=== PATIENT | male | born 1945 | race Caucasian/White ===

== ENCOUNTER 2019-09-28 11:12 | Day surgery (SDC) | payer OTHER ==
[2019-09-28] VITALS (10 sets, daily range): BP systolic 105–149; BP diastolic 53–82; PULSE 68–96; TEMP 98–98.7
[~2019-09-28] VITALS: Ht 177.8 cm; Wt 72.9 kg
[2019-09-28] MEDS ORDERED: 00186-0370-20 IH (12:11)
[2019-09-28 12:48] LABS: BASO % 0.5 % (0.0-2.0); EOS # 0.1 (0.0-0.7); EOS % 1.7 % (0-4.0); GRAN # 4.4 (1.4-6.5); GRAN % 67.6 % (42.2-75.2); HEMATOCRIT 44.6 % (42.0-52.0); HEMOGLOBIN 14.8 g/dl (13.5-18.0); LYMPH # 1.5 (1.2-3.4); LYMPH % 23.1 % (20.0-51.0); MEAN CELL VOLUME 96 fl (80.0-100.0); MEAN CORPUSCULAR HEMOGLOBIN 32 pg (27.0-31.0); MEAN CORPUSCULAR HGB CONC 33 g/dl (33.0-37.0); MEAN PLATELET VOLUME 9.9 fl (7.4-10.4); MONO # 0.4 (0.1-0.6); MONO % 6.8 % (1.7-9.3); PLATELET COUNT 261 K/mm3 (130-400); RED BLOOD COUNT 4.66 M/mm3 (4.20-5.60); REDCELL DISTRIBUTION WIDTH-CV 12.1 % (11.5-14.5)
[2019-09-28 12:56] LABS: ALBUMIN 3.8 gm/dL (3.5-5.0); BILIRUBIN,TOTAL 0.4 mg/dL (0.0-1.0); CALCIUM 8.4 mg/dL (8.4-10.2); CREATININE, serum 0.68 (0.66-1.25); POTASSIUM 3.9 mmol/L (3.4-5.0); TOTAL PROTEIN 6.8 gm/dL (6.4-8.2)
--- NOTE | 2019-09-28 13:17 | NUR ---
Initial visit; Patient and his son thanked Community Leader for offering encouragement and prayer prior to his surgical procedure.
--- NOTE | 2019-09-28 18:39 | NUR ---
PT TO ROOM 322 PER BED WITH [facility]I MEDEIROS PACU @1800. PT IS A/O X3, BOWEL SOUNDS HYPO. 5 ROBOT SITES CLOSED WITH [place] SET. VSS, PT DENIES NEEDS AT THIS TIME.
--- NOTE | 2019-09-28 20:00 | NUR ---
Refused ice to site at this time
--- NOTE | 2019-09-28 20:35 | NUR ---
Resting in bed. Assessment complete. Lungs clear. Heart sounds normal. Bowels active x4. Pulses strong throughout. No edema noted. SCD in place. INT left forearm without complications. Patient tolerating PO well. X4 lap sites CDI open to air. Denies pain. Urine yellow and cloudy at this time. Denies needs. Will monitor.
[2019-09-29 03:35] VITALS: BP 105/50; PULSE 64; TEMP 98
--- NOTE | 2019-09-29 03:41 | NUR ---
Reports 5/10 RUQ ABD pain. Provided patient with PRN tylenol at this time. Educated patient to report unrelieved pain to allow for other pain interventions. Voices understanding. Denies other needs at this time. Call light in reach.
--- NOTE | 2019-09-29 04:01 | NUR ---
Patient reports right shoulder pain. Educated patient regarding gas pains. Ambulating through surgical and medical units then returned to bed. Denies other needs at this time. Call light in reach.
--- NOTE | 2019-09-29 06:33 | NUR ---
Patient had RUQ pain and right shoulder pain during night. Educated at ambulate and provided tylenol. Otherwise uneventful night. Denies needs this AM. Call light in reach.
[2019-09-29 07:17] VITALS: BP 125/63; PULSE 81; TEMP 98
--- NOTE | 2019-09-29 07:22 | NUR ---
Report given to MALA Heard
--- NOTE | 2019-09-29 07:57 | NUR ---
Sitting up on edge of bed. Having the gas pains in chest that is becoming alleviated with getting up and moving around. Encouraged patient to continue to ambulate to help alleviate this pain. Patient denies passing gas at this time. Abd lap sites x4 with andersen set, all edges well approximated, no redness/swelling/drainage from sites. Patient hopes to go home today. Denies further needs at this time.
--- NOTE | 2019-09-29 09:53 | NUR ---
Patient dressed and ready for discharge. INT removed with catheter intact. Applied 2x2s to site and reinforced with Coban. Reviewed all discharge instructions. Questions answered. Patient signs discharge paperwork. Provided discharge information packet to the patient. Patient's son here to take patient home. Patient walked out to [facility] by RACHEL Briscoe.
--- NOTE | 2019-09-29 10:06 | NUR ---
Follow-up visit; Patient preparing to be discharged, thanked Precipitate Washer for looking in on him again today and wishing him well and God's blessings.
== END 2019-09-29 09:55 | disposition home or self-care (01) ==
LOC: SDCO 11:12 → SURG 11:12 → SDCO 13:30 → SURG 18:00 → SDCO 09-29 09:55
PROVIDERS: Surgery
DX: K40.31 Unilateral inguinal hernia, with obstruction, without gangrene, recurrent (principal); J45.909 Unspecified asthma, uncomplicated; I10 Essential (primary) hypertension
CPT/HCPCS: OP; A4314; C1781; J1100; J2405; J2704; J3010; J7120

== ENCOUNTER → 2022-09-24 | Outpatient (CLI) | payer BC, MEDICARE, MEDICAID ==
[~2022-09-24] MED LIST: 00186-0370-20 IH
== END ==
LOC: COL.PUL 10:24
DX: I77.810 Thoracic aortic ectasia (principal); R91.8 Other nonspecific abnormal finding of lung field; J98.4 Other disorders of lung